=== PATIENT | female | born 1985 | race Caucasian/White ===

== ENCOUNTER 2017-08-22 18:31 | Emergency (ER) | payer MEDICAID ==
[2017-08-22 18:48] VITALS: BP 132/91; PULSE 101; RESP 16; TEMP 98.6; O2SAT 99
--- NOTE | 2017-08-22 19:14 | ED PDOC ---
HPI: Dental Pain/Injury Time Seen by Provider: 08/22/17 18:49 Chief Complaint (Nursing): Dental Pain Chief Complaint (Provider): Dental Pain History Per: Patient History/Exam Limitations: no limitations Current Symptoms Are (Timing): Still Present Additional Complaint(s): Lili John is a 32 year old female with no past medical history who is presenting to the ER for evaluation of dental pain, onset yesterday. Patient reports that she had a filling put in the back right upper tooth, and since yesterday she states she feels pain in the two front upper teeth. She states that she was afraid of an infection which prompted this ED visit. Patient denies any trauma, fever, numbness, or headaches. PMD: none provided Past Medical History Reviewed: Historical Data, Nursing Documentation, Vital Signs Vital Signs: Last Vital Signs Temp 98.6 F 08/22/17 18:46 Pulse 101 H 08/22/17 18:46 Resp 16 08/22/17 18:46 BP 132/91 H 08/22/17 18:46 Pulse Ox 99 08/22/17 18:46 - Medical History PMH: No Chronic Diseases - Surgical History Surgical History: No Surg Hx - Family History Family History: States: No Known Family Hx - Home Medications Home Medications: Ambulatory Orders Medication Instructions Recorded Amoxicillin [Amoxil 500 mg Cap] 500 mg PO BID #20 cap 08/22/17 Ibuprofen [Motrin Tab] 600 mg PO Q6 PRN #30 tab 08/22/17 - Allergies Allergies/Adverse Reactions: Allergies Allergy/AdvReac Type Severity Reaction Status Date / Time No Known Allergies Allergy Verified 09/04/15 07:47 Review of Systems ROS Statement: Except As Marked, All Systems Reviewed And Found Negative Constitutional: Negative for: Fever, Other (trauma) ENT: Positive for: Other (dental pain) Neurological: Negative for: Numbness, Headache Physical Exam - Reviewed Nursing Documentation Reviewed: Yes Vital Signs Reviewed: Yes - Physical Exam Appears: Positive for: Non-toxic, No Acute Distress Head Exam: Positive for: ATRAUMATIC, NORMAL INSPECTION, NORMOCEPHALIC Skin: Positive for: Normal Color, Warm. Negative for: Rash ENT: Positive for: Other (minimal tenderness to bilateral first teeth, maxillary area, no gingival swelling ) Neurologic/Psych: Positive for: Alert, Oriented. Negative for: Motor/Sensory Deficits - ECG O2 Sat by Pulse Oximetry: 99 (RA) Pulse Ox Interpretation: Normal Medical Decision Making Medical Decision Making: Time: 18:53 Plan: --Toradol 30 mg Im Upon provider reevaluation patient is feeling better, is medically stable, and requires no further treatment in the ED at this time. Patient will be discharged home. Counseling was provided and all questions were answered regarding diagnosis and need for follow up with dentist. There is agreement to discharge plan. Return if symptoms persist or worsen. Scribe Attestation: Documented by Esthela Childers, acting as a scribe for Kaiden Contreras PA-C. Provider Scribe Attestation: All medical record entries made by the Scribe were at my direction and personally dictated by me. I have reviewed the chart and agree that the record accurately reflects my personal performance of the history, physical exam, medical decision making, and the department course for this patient. I have also personally directed, reviewed, and agree with the discharge instructions and disposition. Disposition - Clinical Impression Clinical Impression: Toothache - Patient ED Disposition Is Patient to be Admitted: No - Disposition Referrals: Nohemy Tesfaye [Outside] Disposition: Routine/Home Disposition Time: 20:00 Condition: STABLE Prescriptions: Amoxicillin [Amoxil 500 mg Cap] 500 mg PO BID #20 cap Ibuprofen [Motrin Tab] 600 mg PO Q6 PRN #30 tab PRN Reason: pain Instructions: Dental Pain (DC) Forms: [employer] (Kinyarwanda)
== END 2017-08-22 20:00 | disposition home or self-care (01) ==
LOC: H.ER 18:31
DX: K08.89 Other specified disorders of teeth and supporting structures (principal)
CPT/HCPCS: 96372; 99282; J1885